=== PATIENT | male | born 1980 | race Two or more races ===

== ENCOUNTER 2020-05-14 17:50 | Emergency (ER) | payer SELFPAY ==
[2020-05-14] MEDS ORDERED: CHLORPROMAZINE HCL 25 MG TABLET PO ONE (20:38)
--- NOTE | 2020-05-14 20:40 | ER Document Report ---
ED Medical Screen (RME) - General Chief Complaint: Other Stated Complaint: HICCUPS Time Seen by Provider: 05/14/20 20:23 Mode of Arrival: Ambulatory Information source: Patient Notes: HPI; 39-year-old male presents to the emergency room complaining of persistent hiccups, headache, and burning in his throat with difficulty swallowing for the past 8 days. Has been using [id number] omeprazole without relief. History of similar episode 4 years ago in [place] was admitted for 10 days. States they tried multiple medications before they were able to heal his hiccups. PE: Alert and oriented x3. No pharyngeal erythema is noted. Lungs: Clear to auscultation without rales, rhonchi, wheezes. Heart: Regular rate rhythm without murmurs, rubs, gallops. I have greeted and performed a rapid initial assessment of this patient. A comprehensive ED assessment and evaluation of the patient, analysis of test results and completion of the medical decision making process will be conducted by additional ED providers. I have specifically instructed the patient or family members with the patient to immediately return to any nursing staff should anything change in the patient's condition or with their chief complaint. TRAVEL OUTSIDE OF THE [place] IN LAST 30 DAYS: No - Related Data Allergies/Adverse Reactions: No Known Allergies Allergy (Unverified 05/14/20 20:24) Home Medications: ANTI-ACIDS. Past Medical History - Social History Frequency of alcohol use: None Drug Abuse: None Physical Exam - Vital signs Vitals: Temp Pulse BP Pulse Ox 98.6 F 94 148/82 H 100 05/14/20 18:00 05/14/20 18:00 05/14/20 18:00 05/14/20 18:00 Course - Vital Signs Vital signs: Temp Pulse Resp BP Pulse Ox 98.6 F 94 148/82 H 100 05/14/20 18:00 05/14/20 18:00 05/14/20 18:00 05/14/20 18:00
[2020-05-14 22:29] LABS: ABSOLUTE BASOPHILS # (AUTO) 0.1 10^3/uL (0.0-0.2); ABSOLUTE EOSINOPHILS # (AUTO) 0.2 10^3/uL (0.0-0.6); ABSOLUTE MONOCYTES (AUTO) 0.7 10^3/uL (0.1-1.4); ABSOLUTE NEUT (AUTO) 9.4 10^3/uL (1.7-8.2); BASOPHILS % (AUTO) 0.5 % (0-2); EOSINOPHILS % (AUTO) 1.3 % (0-6); HEMATOCRIT 44.5 % (37.9-51.0); HEMOGLOBIN 15.4 g/dL (13.5-17.0); LYMPHOCYTES % (AUTO) 22.8 % (13-45); MEAN CORPUSCULAR HEMOGLOBIN 29.8 pg (27.0-33.4); MEAN CORPUSCULAR HGB CONC 34.7 g/dL (32.0-36.0); MEAN CORPUSCULAR VOLUME 86 fl (80-97); MONOCYTES % (AUTO) 5.3 % (3-13); PLATELET COUNT 266 10^3/uL (150-450); RED BLOOD COUNT 5.18 10^6/uL (4.35-5.55); RED CELL DISTRIBUTION WIDTH 13.3 % (11.5-14.0); SEGMENTED NEUTROPHILS % (AUTO) 70.1 % (42-78); TOTAL CELLS COUNTED % (AUTO) 100 %; WHITE BLOOD COUNT 13.4 10^3/uL (4.0-10.5)
[2020-05-14 22:37] LABS: ALBUMIN 4.7 g/dL (3.5-5.0); ALKALINE PHOSPHATASE 90 U/L (38-126); ANION GAP 11 (5-19); ASPARTATE AMINO TRANSFERASE 26 U/L (17-59); BILIRUBIN,DIRECT 0.1 mg/dL (0.0-0.4); BILIRUBIN,TOTAL 0.4 mg/dL (0.2-1.3); BLOOD UREA NITROGEN 15 mg/dL (7-20); CALCIUM 9.4 mg/dL (8.4-10.2); CARBON DIOXIDE 26 mmol/L (22-30); CHLORIDE 103 mmol/L (98-107); GLUCOSE 97 mg/dL (75-110); POTASSIUM 4.3 mmol/L (3.6-5.0); TOTAL PROTEIN 8.1 g/dL (6.3-8.2)
--- NOTE | 2020-05-15 00:45 | ER Document Report ---
ED GI/ - General Chief Complaint: Other Stated Complaint: HICCUPS Time Seen by Provider: 05/14/20 20:23 Mode of Arrival: Ambulatory Notes: CHIEF COMPLAINT: Hiccups for 8 days HPI: 39-year-old male presenting for hiccups 3 days, had something similar 4 years ago while in [place], [facility] he was admitted at the time and they tried multiple medications and finally were able to find one that helped with his hiccups, does not specifically recall what that was. States he also had a LEEP procedure done 3 years ago. Has not followed with gastroenterology here in town. Has been taking wmea-coq-[id number] omeprazole and Mylanta to try and help with reflux symptoms and his hiccups. Is having difficulty sleeping because of the hiccups. ROS: See HPI - all other systems were reviewed and are otherwise negative Constitutional: no fever Eyes: no drainage, no blurred vision ENT: no runny nose, no sore throat Cardiovascular: no chest pain Resp: no SOB, no cough GI: no vomiting, no diarrhea, no abdominal pain, positive hiccups : no dysuria Integumentary: no rash Allergy: no hives Musculoskeletal: no extremity pain or swelling Neurological: no numbness/tingling, no weakness MEDICATIONS: I agree with the patient medications as charted by the RN. ALLERGIES: I agree with the allergies as charted by the RN. PAST MEDICAL HISTORY/PAST SURGICAL HISTORY: Reviewed and agree as charted by RN. SOCIAL HISTORY: Reviewed and agree as charted by RN. FAMILY HISTORY: No significant familial comorbid conditions directly related to patient complaint EXAM: Reviewed vital signs as charted by RN. CONSTITUTIONAL: Alert and oriented and responds appropriately to questions. Well-appearing; well-nourished HEAD: Normocephalic; atraumatic EYES: PERRL; Conjunctivae clear, sclerae non-icteric ENT: normal nose; no rhinorrhea; moist mucous membranes; pharynx without lesions noted, no uvula edema or deviation, no tonsillar hypertrophy, phonation normal NECK: Supple without meningismus; non-tender; no cervical lymphadenopathy, no masses CARD: RRR; no murmurs, no clicks, no rubs, no gallops; symmetric distal pulses RESP: Normal chest excursion without splinting or tachypnea; breath sounds clear and equal bilaterally; no wheezes, no rhonchi, no rales, pulse oximetry 99% on room air not hypoxic ABD/GI: Normal bowel sounds; non-distended; soft, non-tender, no rebound, no guarding; no palpable organomegaly or masses. BACK: The back appears normal and is non-tender to palpation, there is no CVA tenderness EXT: Normal ROM in all joints; non-tender to palpation; no cyanosis, no effusions, no edema SKIN: Normal color for age and race; warm; dry; good turgor; no acute lesions noted NEURO: Moves all extremities equally; Motor and sensory function intact PSYCH: The patient's mood and manner are appropriate. Grooming and personal hygiene are appropriate. MDM: 39-year-old male with hiccups and reflux symptoms. Hospital par interpreting per patient request. Patient is not having any hiccups currently. Will give GI cocktail. Plan to keep patient on Carafate, Reglan. Will give oral Ativan at night for the next 3 to 5 days to help with sleep. Will refer to gastroenterology. Patient screening lab work here negative for acute findings. He has no throat complaints at this time that would necessitate CT of the throat soft tissues. Phonation is normal TRAVEL OUTSIDE OF THE [place] IN LAST 30 DAYS: No - Related Data Allergies/Adverse Reactions: No Known Allergies Allergy (Unverified 05/14/20 20:24) Home Medications: ANTI-ACIDS. Past Medical History - General Information source: Patient - Social History Smoking Status: Never Smoker Frequency of alcohol use: None Drug Abuse: None Family History: Reviewed & Not Pertinent Physical Exam - Vital signs Vitals: Temp Pulse BP Pulse Ox 98.6 F 94 148/82 H 100 05/14/20 18:00 05/14/20 18:00 05/14/20 18:00 05/14/20 18:00 Course - Re-evaluation Re-evalutation: 05/15/20 00:50 EKG normal sinus rhythm with a ventricular rate of 68 with a KS of 144 interpreted by an emergency department physician. No other ectopy noted - Vital Signs Vital signs: Temp Pulse Resp BP Pulse Ox 98.6 F 94 148/82 H 100 05/14/20 18:00 05/14/20 18:00 05/14/20 18:00 05/14/20 18:00 - Laboratory Result Diagrams: 05/14/20 21:00 05/14/20 21:00 Laboratory results interpreted by me: 05/14/20 21:00 WBC 13.4 H Absolute Neuts (auto) 9.4 H Discharge - Discharge Clinical Impression: Intractable hiccups, Reflux gastritis Condition: Stable Disposition: HOME, SELF-CARE Instructions: Hiccups ([facility]) Additional Instructions: Take the medications as prescribed. Take Ativan at night to help with sleep over the next 5 days. Follow-up closely with gastroenterology for further evaluation and management call for appointment. [place] los medicamentos segn lo prescrito. [place] Ativan por la noche para ayudarlo a dormir jimmy los prximos 5 blanco. [place] un seguimiento de cerca con gastroenterologa para hany evaluacin adicional y llame al manejo para solicitar hany jenni. Prescriptions: Lorazepam [Ativan 1 mg Tablet] 1 mg PO QHS #5 tablet Sucralfate [Carafate 1 gm Tablet] 1 gm PO ACHS #120 tablet Metoclopramide HCl [Reglan 10 mg Tablet] 5 mg PO ACHS #40 tablet Referrals: YOLANDE ADKINS MD [ACTIVE STAFF] - Follow up as needed
[2020-05-15] MEDS ORDERED: MAG HYDROX/AL HYDROX/SIMETH SUSP 30 ML UDCUP PO ONE (00:46)
[2020-05-15] MEDS ORDERED: LIDOCAINE 2% VISCOUS SOLN 15 ML UDCUP PO ONE (00:46)
[2020-05-15] MEDS ORDERED: METOCLOPRAMIDE HCL ORAL SOLN 10 MG/10 ML UDCUP PO ONE (00:46)
[2020-05-15 00:59] VITALS: BP 136/74
--- NOTE | 2020-05-15 09:41 | EKG REPORT ---
SEVERITY:- NORMAL ECG - SINUS RHYTHM : Confirmed by: Rosalina Chavez 15-May-2020 09:40:23
== END 2020-05-15 01:29 | disposition home or self-care (01) ==
LOC: ER 17:50
DX: K21.9 Gastro-esophageal reflux disease without esophagitis (principal); K29.60 Other gastritis without bleeding; R06.6 Hiccough; Z79.899 Other long term (current) drug therapy
CPT/HCPCS: 93005; 99284; 36415; 85025; 80053; 84484; 93010; J3490 ×2